=== PATIENT | male | born 1980 | race Caucasian/White ===

== ENCOUNTER 2023-01-29 17:35 | Inpatient (IN) | payer OTHER ==
[2023-01-29 18:22] VITALS: BMI 23.1
[2023-01-30] MEDS ORDERED: NICOTINE 10 MG CARTRIDGE (INHALER) IH PRN (01:37)
[2023-01-30] MEDS ORDERED: guaiFENesin 600 MG TABLET.ER (FP) PO PRN (01:37)
[2023-01-30] MEDS ORDERED: IBUPROFEN 400 MG TABLET (FP) PO PRN (01:37)
[2023-01-30] MEDS ORDERED: MAGNESIUM HYDROX 2400MG/30ML ORAL SUSPENSION 30 ML CUP PO PRN (01:37)
[2023-01-30] MEDS ORDERED: BISMUTH SUBSALICYLATE 524 MG/30 ML PO PRN (01:37)
[2023-01-30] MEDS ORDERED: LOPERAMIDE HCL 2 MG CAPSULE PO PRN (01:37)
[2023-01-30] MEDS ORDERED: ONDANSETRON *ODT* 4 MG TABLET SL PRN (01:37)
[2023-01-30] MEDS ORDERED: NALOXONE HCL 0.4 MG/ML VIAL IM PRN (01:37)
[2023-01-30] MEDS ORDERED: BENZOCAINE/MENTHOL (CHLORASEPTIC ) LOZENGE MM PRN (01:37)
[2023-01-30] MEDS ORDERED: BENZONATATE 200 MG CAPSULE PO PRN (01:37)
[2023-01-30] MEDS ORDERED: IBUPROFEN 600 MG TABLET (FP) PO PRN (01:37)
[2023-01-30] MEDS ORDERED: POLYETHYLENE GLYCOL (HEALTHYLAX) 3350 17 GM PACKET PO PRN (01:37)
[2023-01-30] MEDS ORDERED: NALOXONE HCL (KLOXXADO) 8 MG SPRAY NS PRN (01:37)
[2023-01-30] MEDS ORDERED: methaDONE HCL 10 MG TABLET (FOR DETOX USE ONLY) PO ONE (01:37)
[2023-01-30] MEDS ORDERED: cloNIDine HCL 0.1 MG TABLET PO PRN (01:37)
[2023-01-30] MEDS ORDERED: TRIMETHOBENZAMIDE HCL 200MG/2ML INJ IM ONE ×2 (01:51→02:15)
[2023-01-30] MEDS ORDERED: methaDONE HCL 10 MG TABLET (FOR DETOX USE ONLY) ONE (02:15)
[2023-01-30] MEDS: PRENATAL VITAMINS W/ FOLIC ACID TABLET (FP) PO SCH (10:10)
[2023-01-30] MEDS: NICOTINE 21 MG/24 HOURS TOPICAL PATCH TD SCH (10:11)
[2023-01-30] MEDS: THIAMINE HCL 100 MG TABLET (FP) PO SCH (22:45)
[2023-01-30] MEDS: METHOCARBAMOL 500 MG TABLET PO PRN (22:46)
[2023-01-30] MEDS: MELATONIN 5 MG TABLETS PO SCH (22:47)
[2023-01-30] MEDS: DICYCLOMINE HCL 10 MG CAPSULE PO PRN (22:53)
[2023-01-31] MEDS: METHOCARBAMOL 500 MG TABLET PO PRN (10:26)
[2023-01-31] MEDS: PRENATAL VITAMINS W/ FOLIC ACID TABLET (FP) PO SCH (10:27)
[2023-01-31] MEDS: NICOTINE 21 MG/24 HOURS TOPICAL PATCH TD SCH (10:29)
[2023-01-31] MEDS: MELATONIN 5 MG TABLETS PO SCH (22:28)
[2023-01-31] MEDS: THIAMINE HCL 100 MG TABLET (FP) PO SCH (22:28)
[2023-01-31] MEDS: DICYCLOMINE HCL 10 MG CAPSULE PO PRN (22:28)
[2023-01-31] MEDS: ACETAMINOPHEN 325 MG TABLET (FP) PO PRN (22:30)
[2023-02-01] MEDS: METHOCARBAMOL 500 MG TABLET PO PRN (05:40)
[2023-02-01] MEDS: MAG HYDROX/AL HYDROX/SIMETH 30 ML UNIT-DOSE CUP PO PRN ×3 (05:41→17:46)
[2023-02-01 09:19] LABS: POTASSIUM 4.3 mmol/L (3.5-5.1)
[2023-02-01 09:35] LABS: BLOOD UREA NITROGEN 14.7 mg/dL (7-18); CALCIUM 9.6 mg/dL (8.5-10.1)
[2023-02-01 09:39] LABS: BILIRUBIN,TOTAL 1.1 mg/dL (0.2-1); CREATININE 1.2 mg/dL (0.55-1.3)
[2023-02-01] MEDS ORDERED: methaDONE HCL 10 MG TABLET (FOR DETOX USE ONLY) PO ONE (10:00)
[2023-02-01] MEDS: PRENATAL VITAMINS W/ FOLIC ACID TABLET (FP) PO SCH (10:26)
[2023-02-01] MEDS: NICOTINE 21 MG/24 HOURS TOPICAL PATCH TD SCH (10:27)
[2023-02-01] MEDS ORDERED: ALBUTEROL SO4 HFA INHALER IH PRN (10:28)
[2023-02-01 17:07] VITALS: BP 111/58; PULSE 67; RESP 17; TEMP 97.3
[2023-02-01] MEDS: ACETAMINOPHEN 325 MG TABLET (FP) PO PRN (17:48)
[2023-02-01] MEDS ORDERED: hydrOXYzine PAMOATE 25 MG CAPSULE (FP) PO ONE (18:29)
[2023-02-01] MEDS ORDERED: diazePAM 5 MG TABLET PO PRN (18:30)
[2023-02-03] MEDS ORDERED: methaDONE HCL 10 MG TABLET (FOR DETOX USE ONLY) PO ONE (10:00)
== END 2023-02-01 19:17 | disposition left against medical advice (07) | DRG 770 ==
LOC: YASAS 17:35 → Y6N 01-30 02:30
PROVIDERS: ADMIT Allergy & Immunology; ATTEND Surgery
PROC: HZ2ZZZZ Detoxification Services for Substance Abuse Treatment (ICD-10-PCS; principal; 2023-01-30)
DX: F11.23 Opioid dependence with withdrawal (principal); F12.20 Cannabis dependence, uncomplicated; F17.210 Nicotine dependence, cigarettes, uncomplicated; F41.9 Anxiety disorder, unspecified; Z59.00 Homelessness unspecified
CPT/HCPCS: 36415; 80053; 86780; 87635; 93005; 93010; Q0162

== ENCOUNTER 2023-02-13 23:19 | Inpatient (IN) | payer SELFPAY ==
[2023-02-13 23:57] VITALS: BMI 22.9
[2023-02-14] MEDS ORDERED: COLLOIDAL OATMEAL 1 BAR EACH TP PRN (00:22)
[2023-02-14] MEDS ORDERED: NALOXONE HCL (KLOXXADO) 8 MG SPRAY NS PRN (00:22)
[2023-02-14] MEDS ORDERED: IBUPROFEN 400 MG TABLET (FP) PO PRN (00:22)
[2023-02-14] MEDS ORDERED: METHOCARBAMOL 500 MG TABLET PO PRN (00:22)
[2023-02-14] MEDS ORDERED: guaiFENesin 600 MG TABLET.ER (FP) PO PRN (00:22)
[2023-02-14] MEDS ORDERED: NALOXONE HCL 0.4 MG/ML VIAL IVPUSH PRN (00:22)
[2023-02-14] MEDS ORDERED: POLYETHYLENE GLYCOL (HEALTHYLAX) 3350 17 GM PACKET PO PRN (00:22)
[2023-02-14] MEDS ORDERED: IBUPROFEN 600 MG TABLET (FP) PO PRN (00:22)
[2023-02-14] MEDS ORDERED: LOPERAMIDE HCL 2 MG CAPSULE PO PRN (00:22)
[2023-02-14] MEDS ORDERED: MAG HYDROX/AL HYDROX/SIMETH 30 ML UNIT-DOSE CUP PO PRN (00:22)
[2023-02-14] MEDS ORDERED: AMMONIUM LACTATE 12% LOTION 225 GM BOTTLE TP PRN (00:22)
[2023-02-14] MEDS ORDERED: ACETAMINOPHEN 325 MG TABLET (FP) PO PRN (00:22)
[2023-02-14] MEDS ORDERED: BENZONATATE 200 MG CAPSULE PO PRN (00:22)
[2023-02-14] MEDS ORDERED: BENZOCAINE/MENTHOL (CHLORASEPTIC ) LOZENGE MM PRN (00:22)
[2023-02-14] MEDS ORDERED: MAGNESIUM HYDROX 2400MG/30ML ORAL SUSPENSION 30 ML CUP PO PRN (00:22)
[2023-02-14] MEDS ORDERED: NICOTINE POLACRILEX 2 MG GUM BUC PRN (00:22)
[2023-02-14] MEDS: PRENATAL VITAMINS W/ FOLIC ACID TABLET (FP) PO SCH (10:28)
[2023-02-14] MEDS: NICOTINE 14 MG/24 HOURS TOPICAL PATCH TD SCH (10:28)
[2023-02-14] MEDS: hydrOXYzine PAMOATE 25 MG CAPSULE (FP) PO PRN (10:32)
[2023-02-14] MEDS: NICOTINE 10 MG CARTRIDGE (INHALER) IH PRN (11:57)
[2023-02-14] MEDS: BUPRENORPHINE/NALOXONE 8 MG/2 MG FILM PACKET SL SCH (13:23)
[2023-02-14] MEDS ORDERED: MELATONIN 5 MG TABLETS PO SCH (22:00)
[2023-02-14] MEDS ORDERED: THIAMINE HCL 100 MG TABLET (FP) PO SCH (22:00)
[2023-02-15] MEDS: BUPRENORPHINE/NALOXONE 8 MG/2 MG FILM PACKET SL SCH ×3 (00:01→14:47)
[2023-02-15] MEDS: PRENATAL VITAMINS W/ FOLIC ACID TABLET (FP) PO SCH (11:35)
[2023-02-15] MEDS: NICOTINE 14 MG/24 HOURS TOPICAL PATCH TD SCH (11:35)
[2023-02-15] MEDS: NICOTINE 10 MG CARTRIDGE (INHALER) IH PRN (14:47)
[2023-02-15] MEDS: hydrOXYzine PAMOATE 25 MG CAPSULE (FP) PO PRN (14:48)
[2023-02-16] MEDS: hydrOXYzine PAMOATE 25 MG CAPSULE (FP) PO PRN (06:27)
[2023-02-16] MEDS: BUPRENORPHINE/NALOXONE 8 MG/2 MG FILM PACKET SL SCH (06:29)
[2023-02-16 07:17] VITALS: BP 106/64; PULSE 62; RESP 18; TEMP 97.2
[2023-02-16] MEDS ORDERED: TOLNAFTATE 1% CREAM 15 GM TUBE TP SCH (10:00)
== END 2023-02-16 10:25 | disposition left against medical advice (07) | DRG 770 ==
LOC: YASAS 23:19 → Y5N 02-14 01:19
PROVIDERS: ADMIT Allergy & Immunology; ATTEND Allergy & Immunology
PROC: HZ42ZZZ Group Counseling for Substance Abuse Treatment, Cognitive-Behavioral (ICD-10-PCS; principal; 2023-02-14)
DX: F11.20 Opioid dependence, uncomplicated (principal); F14.20 Cocaine dependence, uncomplicated; F12.20 Cannabis dependence, uncomplicated; F17.210 Nicotine dependence, cigarettes, uncomplicated; B35.3 Tinea pedis
CPT/HCPCS: 36415; 86803; 87635